=== PATIENT | female | born 1955 | race Caucasian/White ===

== ENCOUNTER 2023-01-03 10:42 | Emergency (ER) | payer OTHER, SELFPAY ==
[2023-01-03 10:46] VITALS: BP 186/90; PULSE 82; RESP 17; TEMP 36.7; O2SAT 97
--- NOTE | 2023-01-03 11:25 | ECG_ITS ---
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 Measurements Intervals [place] Rate: 66 P: 48 MN: 162 QRS: 48 QRSD: 77 T: 62 QT: 433 QTc: 454 Interpretive Statements SINUS RHYTHM No previous ECG available for comparison Electronically Signed On 01-03-2023 14:39:38 CDT by Darian Beatty M.D. [id number]
--- NOTE | 2023-01-03 11:25 | CTR_ITS ---
PROCEDURE INFORMATION: Exam: CT Head Without Contrast Exam date and time: 01/03/2023 11:46 AM Age: 67 years old Clinical indication: Stroke-like symptoms; Speech disturbance; Additional info: Right facial droop, slurred speech, x 24 hours TECHNIQUE: Imaging protocol: Computed tomography of the head without contrast. Radiation optimization: All CT scans at this facility use at least one of these dose optimization techniques: automated exposure control; mA and/or kV adjustment per patient size (includes targeted exams where dose is matched to clinical indication); or iterative reconstruction. Other technique: STROKE PROTOCOL was implemented. REPORTING DATA: Count of CT and Cardiac NM exams in prior 12 months: This patient has received 0 known CTs and 0 known cardiac nuclear medicine studies in the 12 months prior to the current study. COMPARISON: No relevant prior studies available. RADIATION DOSE METRICS: Total DLP (mGy-cm): 965.98 FINDINGS: Brain: There is focal cortical hypodensity and loss of greenwood-white differentiation in the anterior left frontal lobe visible involving a roughly 2 cm diameter region on axial series 4 image 25 through 30. There is asymmetric focal hypodensity measuring 11 mm diameter in the superior aspect of the left anterior limb of the internal capsule at the lateral margin of the caudate head visible on axial series 4, image 28. There is no acute intracranial hemorrhage. Cerebral ventricles: There is no significant ventricular dilation. The basal cisterns are unremarkable. Paranasal sinuses: The paranasal sinuses are clear. Mastoid air cells: The mastoid air cells are clear. Bones/joints: The calvarium is intact. Soft tissues: The visible extracranial soft tissues are unremarkable. CT/CT head wo con* [id number] IMPRESSION: 1. No acute intracranial hemorrhage. 2. Suspect small acute or subacute infarct in the anterior left frontal lobe. 3. Focal hypodensity associated in the left internal capsule is nonspecific and may represent subacute or chronic infarct or focal microvascular white matter disease. ASSESSMENT: ASPECTS (Lilia Stroke Program Early CT Score) is 10.
[2023-01-03 11:38] LABS: Basophils # 0.1 10^3/uL (0.0-0.1); Basophils % 1.3 %; Eosinophils # 0.1 10^3/uL (0.0-0.8); Eosinophils % 1.1 %; Hematocrit 42.5 % (36-47); Lymphocytes # 1.8 10^3/uL (0.8-4.8); Lymphocytes % 32.5 %; Mean Corpuscular HGB Conc 32.5 g/dL (30-55); Mean Corpuscular Volume 92.4 fl (85-98); Mean Platelet Volume 9.9 fL (7.4-10.4); Monocytes # 0.6 10^3/uL (0.2-0.9); Monocytes % 11.8 %; Neutrophils # 2.88 10^3/uL (1.8-7.7); Neutrophils % 52.9 %; Nucleated Red Blood Cells % 0 %; Platelet Count 236 10^3/cmm (157-399); Red Cell Distribution Width 13.5 % (12.1-15.1); White Blood Count 5.44 10^3/uL (3.29-11.43)
--- NOTE | 2023-01-03 11:44 | W.ED.NEUROSD ---
HPI - Neuro Symptoms/Deficit General: Chief Complaint: Neuro Symptoms/Deficit Stated Complaint: stroke like symptoms Time Seen by Provider: 01/03/23 11:15 History of Present Illness: Patient presents to the ER with chief complaint of strokelike symptoms. Patient has a right-sided facial droop and slurring of her speech. Patient says she woke up like this yesterday morning. Patient's last known normal was Wednesday night around 6 PM. She has never had anything like this before. Patient does smoke about half a pack per day. Review of Systems General: Reports: 10 or more systems reviewed and unremarkable except in HPI and below Physical Exam Const: COMMON NORMALS: no acute distress, average body habitus, patient oriented x3, no limitations, healthy appearing, alert and well nourished HENMT: COMMON NORMALS: normocephalic, atraumatic, hearing grossly normal bilaterally, external ears normal, Normal external nose present and moist oral mucous membranes HEAD & SCALP: normocephalic and atraumatic NOSE: Normal external nose present EXTERNAL EAR: Yes external ears normal Eye: COMMON NORMALS: Equal, round and reactive pupils present, EOMs intact bilaterally, conjunctivae normal and no scleral icterus CONJUNCTIVA: Yes conjunctivae normal PUPIL: Yes Equal, round and reactive pupils present Neck/C-Spine: COMMON NORMALS: full ROM, no lymphadenopathy, supple, no meningeal signs, no JVD and Thyroid normal THYROID: Thyroid normal Lymph: LYMPHATIC: no lymphadenopathy noted and no lymphedema noted Chest: COMMONS NORMALS: normal inspection of the chest and normal palpation of entire chest wall Resp: COMMON NORMALS: normal respiratory effort, No retractions, No use of accessory muscles and clear to auscultation bilaterally AUSCULTATION: clear to auscultation bilaterally Cardio: COMMON NORMALS: no JVD, regular rate, regular rhythm, S1 normal heart sound present, S2 normal heart sound present, No gallops present (Cardio), No clicks present (Cardio), No murmurs present (Cardio) and No rub (Cardio) RATE: regular rate RHYTHM: regular rhythm HEART SOUNDS: S1 normal heart sound present and S2 normal heart sound present GI: COMMON NORMALS: Normal to inspection, nondistended, normoactive bowel sounds present, Soft to palpation, non-tender, No hepatosplenomegaly present and no masses PALPATION: Yes Soft to palpation and Yes No hepatosplenomegaly present : COMMON NORMALS: Yes no CVA tenderness BLADDER/KIDNEY EXAM: Yes no CVA tenderness Back/Pelvis: COMMON NORMALS: no CVA tenderness Neuro: COMMON NORMALS: patient oriented x3, moves all extremities and no sensory deficits noted; negative for CN's II-XII intact bilaterally (Right-sided facial droop slurring of the speech) and negative for no focal motor deficits (Right-sided facial droop slurring of the speech) SENSORIUM/ORIENTATION: Yes alert MENINGEAL SIGNS: Yes no meningeal signs CRANIAL NERVES: No CN VII (facial) (Right-sided facial droop slurring of the speech) SPEECH: abnormal speech Course Vital Signs: Vital signs: Vital Signs Temperature 98.0 F 01/03/23 10:46 Pulse Rate 60 01/03/23 12:51 Respiratory Rate 17 01/03/23 10:46 Blood Pressure 165/85 01/03/23 12:51 Pulse Oximetry 97 01/03/23 12:51 Oxygen Delivery Me thod Room Air 01/03/23 10:46 MDM - Neuro Symptoms/Deficit Medical Decision Making Presents to the ER 24 hours after having left-sided stroke that affects her right-sided speech and face. Patient's not currently going to any doctor and is on any medicine. Lab work was obtained as well as CT which did show small acute to subacute infarct in the anterior left frontal lobe. This was explained to the patient that she should be released be on a full-strength aspirin. We will set the patient up for ultrasound of her carotid arteries and echocardiogram and have her follow-up with her primary care practitioner in [place] for further work-up. Differential Diagnosis Likely cerebrovascular accident; Unlikely carpal tunnel syndrome, convulsions, delirium, subarachnoid hemorrhage, peripheral neuropathy, multiple sclerosis or transient cerebral ischemia Medical Records I reviewed the patient's medical records. Lab Data I reviewed the patient's lab results. 01/03/23 11:33 01/03/23 11:[address] 01/03/23 11:25 IMPRESSION: 1. No acute intracranial hemorrhage. 2. Suspect small acute or subacute infarct in the anterior left frontal lobe. 3. Focal hypodensity associated in the left internal capsule is nonspecific and may represent subacute or chronic infarct or focal microvascular white matter disease. ASSESSMENT: ASPECTS (Lilia Stroke Program Early CT Score) is 10. ADDENDUM: 01/03/23 1241 THIS REPORT CONTAINS FINDINGS THAT MAY BE CRITICAL TO PATIENT CARE. The findings were verbally communicated via telephone conference with Thomas Marquis at 12:40 PM CDT on 01/03/2023. The findings were acknowledged and understood. Laboratory Results WBC 5.44 10^3/uL (3.29-11.43) 01/03/23 11:33 RBC 4.60 10^6/uL (3.85-5.65) 01/03/23 11:33 Hgb 13.80 g/dL (11.27-16.99) 01/03/23 11:33 Hct 42.5 % (36-47) 01/03/23 11:33 MCV 92.4 fl (85-98) 01/03/23 11:33 MCH 30.0 pg (27-33) 01/03/23 11:33 MCHC 32.5 g/dL (30-55) 01/03/23 11:33 RDW 13.5 % (12.1-15.1) 01/03/23 11:33 Plt Count 236 10^3/cmm (157-399) 01/03/23 11:33 MPV 9.9 fL (7.4-10.4) 01/03/23 11:33 Neut % (Auto) 52.9 % 01/03/23 11:33 Lymph % (Auto) 32.5 % 01/03/23 11:33 [place] % (Auto) 11.8 % 01/03/23 11:33 Eos % (Auto) 1.1 % 01/03/23 11:33 Baso % (Auto) 1.3 % 01/03/23 11:33 Neut # (Auto) 2.88 10^3/uL (1.8-7.7) 01/03/23 11:33 Lymph # (Auto) 1.8 10^3/uL (0.8-4.8) 01/03/23 11:33 [place] # (Auto) 0.6 10^3/uL (0.2-0.9) 01/03/23 11:33 Eos # (Auto) 0.1 10^3/uL (0.0-0.8) 01/03/23 11:33 Baso # (Auto) 0.1 10^3/uL (0.0-0.1) 01/03/23 11:33 Nucleated RBC % (auto) 0 % 01/03/23 11:33 Nucleated RBCs # 0.0 /100WBC 01/03/23 11:33 Sodium 139 mmol/L (136-145) 01/03/23 11:33 Potassium 4.1 mmol/L (3.5-5.1) 01/03/23 11:33 Chloride 104 mmol/L (98-107) 01/03/23 11:33 Carbon Dioxide 27 mmol/L (22-29) 01/03/23 11:33 Anion Gap 12.1 (5-19) 01/03/23 11:33 BUN 11 mg/dL (8-23) 01/03/23 11:33 Creatinine 0.9 mg/dL (0.5-0.9) 01/03/23 11:33 GFR Calculation 62.8 mL/min (90-130) L 01/03/23 11:33 Glucose 110 mg/dL (65-115) 01/03/23 11:33 Calculated Osmolality 288 mOsm/kg (285-295) 01/03/23 11:33 Calcium 9.4 mg/dL (8.5-10.5) 01/03/23 11:33 Magnesium 2.1 mg/dL (1.7-2.3) 01/03/23 11:33 Total Bilirubin 0.2 mg/dL (0.15-1.2) 01/03/23 11:33 AST 17 U/L (0-32) 01/03/23 11:33 ALT 8 U/L (0-33) 01/03/23 11:33 Alkaline Phosphatase 85 U/L (35-105) 01/03/23 11:33 C-Reactive Protein 3.0 mg/L (0.0-4.9) 01/03/23 11:33 Total Protein 7.0 g/dL (6.6-8.7) 01/03/23 11:33 Albumin 4.0 g/dL (3.5-5.2) 01/03/23 11:33 Globulin 3.0 g/dL (1.3-4.6) 01/03/23 11:33 TSH 1.50 uIU/mL (0.27-4.20) 01/03/23 11:33 Urine Color Yellow (Yellow) 01/03/23 11:40 Urine Appearance Clear (CLEAR) 01/03/23 11:40 Urine pH 5 (5-7) 01/03/23 11:40 Ur Specific Allen 1.025 (1.005-1.030) 01/03/23 11:40 Urine Protein Neg (Negative) 01/03/23 11:40 Urine Glucose (UA) Norm (Normal) 01/03/23 11:40 Urine Ketones Negative (Negative) 01/03/23 11:40 Urine Blood Neg (Negative) 01/03/23 11:40 Urine Nitrate Negative (Negative) 01/03/23 11:40 Urine Bilirubin Neg (Negative) 01/03/23 11:40 Urine Urobilinogen Norm mg/dL (Negative) 01/03/23 11:40 Ur Leukocyte Esterase Trace (Negative) H 01/03/23 11:40 Urine RBC 0-4 /hpf (0-2) H 01/03/23 11:40 Urine WBC 0-4 /hpf (0-5) H 01/03/23 11:40 Ur Squamous Epith Cells 5-10 /hpf (0-5) H 01/03/23 11:40 Amorphous Sediment Not Reportable 01/03/23 11:40 Urine Bacteria 1+ /hpf (NONE) H 01/03/23 11:40 Urine Mucus 1+ /hpf 01/03/23 11:40 Urine Opiates Screen Negative ng/mL (Negative) 01/03/23 11:40 Ur Barbiturates Screen Negative ng/mL (Negative) 01/03/23 11:40 Ur Phencyclidine Scrn Negative ng/mL (Negative) 01/03/23 11:40 Ur Amphetamines Screen Negative ng/mL (Negative) 01/03/23 11:40 U Benzodiazepines Scrn Negative ng/mL (Negative) 01/03/23 11:40 Urine Cocaine Screen Negative ng/mL (Negative) 01/03/23 11:40 U Marijuana (THC) Screen Negative ng/mL (Negative) 01/03/23 11:40 All radiology interpretation(s) finalized by discharge EKG Data EKG 1: I personally reviewed and interpreted this EKG as follows: EKG interpretation date: 01/03/23 EKG interpretation time: 11:31 Prior EKG tracings: not available for review Interpretation: EKG showed ventricular rate 66 bpm, MI interval 162, QRS duration 77, QTc of 446, sinus rhythm, no ST-T wave changes Discharge Plan Discharge Patient Disposition: Home Clinical Impression: Cerebrovascular accident Condition: Stable Prescriptions: No Action Vicks DayQuil (pseudoeph-ibup) 30-200 mg Tablet 1 tab PO Q6H PRN (Reason: Cough) ibuprofen 200 mg Capsule 600 - 800 mg PO Q6H PRN (Reason: Pain) Ocuvite Tablet 1 tab PO DAILY Women's 50 Plus Multivitamin 400 mcg-500 mg calcium-20 mcg Tablet 1 tab PO DAILY Discharge Orders: Discharge ED (Routine); Ordered 01/03/23 Ordered By: Thomas Marquis Patient Instructions: Stroke (DC) Activity Restrictions/Additional Instructions: Please call the [place] [facility] and set up an appointment as soon as possible. You have been referred to case management they should be calling you within the next couple days to schedule an appointment for echocardiogram on your heart and an ultrasound of your carotid arteries in your neck. Please take a full-strength aspirin every day. Return to the ER if your symptoms worsen. Coding Level of Care Code ED Supervisor Mails for Markell Mohan
[2023-01-03 12:00] LABS: Add Urine Culture? No; Add Urine Microscopic? YES; Bacteria Urine 1+ /hpf; Bilirubin Urine Neg (Negative); Blood Urine Neg (Negative); Glucose Urine UA Norm (Normal); Ketones Urine Negative (Negative); Leukocyte Esterase Urine Trace (Negative); Mucus Urine 1+ /hpf; Nitrate Urine Negative (Negative); Protein Urine Neg (Negative); RBC Urine 0-4 /hpf (0-2); Specific Gravity, Urine 1.025 (1.005-1.030); Urine Appearance Clear (CLEAR); Urine Color Yellow (Yellow); Urobilinogen Urine Norm (Negative); WBC Urine 0-4 /hpf (0-5); pH Urine 5 (5-7)
[2023-01-03 12:03] LABS: Amphetamines Screen Urine Negative (Negative); Barbiturates Screen Urine Negative (Negative); Benzodiazepines Screen Urine Negative (Negative); Cocaine Screen Urine Negative (Negative); Opiate Screen Urine Negative (Negative); PCP Screen Urine Negative (Negative); THC Screen Urine Negative (Negative)
[2023-01-03 12:08] LABS: Alanine Aminotransferase 8 U/L (0-33); Alkaline Phosphatase 85 U/L (35-105); Anion Gap 12.1 (5-19); Aspartate Amino Transferase 17 U/L (0-32); Blood Urea Nitrogen 11 mg/dL (8-23); Calcium 9.4 mg/dL (8.5-10.5); Carbon Dioxide 27 mmol/L (22-29); Chloride 104 mmol/L (98-107); Glomerular Filtration Rate 62.8 mL/min (90-130); Glucose 110 mg/dL (65-115); Magnesium 2.1 mg/dL (1.7-2.3); Osmolality Calculated 288 mOsm/kg (285-295); Potassium 4.1 mmol/L (3.5-5.1); Sodium 139 mmol/L (136-145); Total Bilirubin 0.2 mg/dL (0.15-1.2)
[2023-01-03 12:51] VITALS: BP 165/85; PULSE 60; O2SAT 97
[2023-01-03 14:05] VITALS: BP 147/80; PULSE 59; O2SAT 100
--- NOTE | 2023-01-04 09:12 | PC.SOCIAL ---
Echo/Carotid U/S Orders sent to centralized scheduling at this time. Spoke with patient about primary care; she states that she sees Asher Sosa in [place]. Asked registration to add provider to chart and results of testing be sent to Asher.
[2023-01-05 15:16] LABS: Chol HDL Ratio 5.06 mg/dL (0.0-4.40); Cholesterol 238 mg/dL (0-200); HDL Cholesterol 47 mg/dL (60-100); Triglycerides 835 mg/dL (0-150)
[2023-01-05 15:55] LABS: LDL Cholesterol Direct 147 mg/dL (0-100)
== END 2023-01-03 14:06 | disposition home or self-care (01) ==
PROVIDERS: Emergency Provider Emergency Medicine; PCP Registered Nurse
DX: I63.9 Cerebral infarction, unspecified (principal)
CPT/HCPCS: 36415; 70450; 80053; 80061; 80306; 81001; 83721; 83735; 84443; 85025; 86140; 93005; 99285

== ENCOUNTER → 2023-01-05 14:54 | Outpatient (BNVA) | payer OTHER, SELFPAY | PROVIDERS: PCP Registered Nurse; Visit Provider Registered Nurse | DX: I63.9 Cerebral infarction, unspecified (principal) | CPT/HCPCS: 80061 ==

== ENCOUNTER 2023-01-18 13:43 | Outpatient (CLI) | payer OTHER, SELFPAY ==
--- NOTE | 2023-01-18 13:55 | USCV_ITS ---
Caren Gilman Age: 67 Gender: F : 1955 Exam Date: 01/18/2023 14:05 Ordering Phys: Thomas Marquis DO Technologist: [place] [facility] [place]: [place] BP: 125 / 80 HR: 79 Rhythm: Sinus Technical Quality: Adequate MEASUREMENTS (Male / Female) Normal Values 2D ECHO LV Chamber Size 3.7 cm RV Chamber Size 3.7 cm LVOT Diameter 2.0 cm LV Ejection Fraction MOD 2C 59.4 % LV Ejection Fraction 2C AL 58.9 % LA Diameter 3.1 cm LA Width 4.0 cm LA Height 5.0 cm RA Width 3.0 cm RA Height 3.8 cm Aorta at Sinotubular Diameter 2.5 cm M-MODE Aortic Annulus Diameter 3.4 cm LA Ao Ratio MM 1.1 MV E Point Septal Separation 0.9 cm DOPPLER AV Peak Velocity 120.0 cm/s LVOT Peak Velocity 89.0 cm/s AV Area Cont Eq vti 2.2 cm squared AV Area Cont Eq pk 2.4 cm squared MV Area PHT 3.4 cm squared Mitral E to A Ratio 0.8 MV E' Velocity 44.0 cm/s Mitral E to MV E' Ratio 6.5 Mitral E to LV E' Lateral Ratio 5.5 Mitral E to LV E' Septal Ratio 8.0 TR Peak Velocity 88.3 cm/s TR Peak Gradient 3.1 mmHg TV Peak E Velocity 76.0 cm/s Right Atrial Pressure 3.0 mmHg Pulmonary Artery Systolic Pressu 6.1 mmHg PV Peak Velocity 89.0 cm/s FINDINGS Left Ventricle Left ventricle is normal in size. LV systolic function is normal with EF of 55-60% . No regional wall motion abnormalities are seen. Right Ventricle Normal in size and function Right Atrium Normal in size Left Atrium Normal in size Mitral Valve Structurally normal mitral valve. Trace mitral regurgitation Aortic Valve Structurally normal aortic valve. No significant stenosis or regurgitation. Tricuspid Valve Mild tricuspid regurgitation. Insufficient TR jet to calculate RVSP Pulmonic Valve Not well visualized Pericardium Normal Aorta Normal in size IVC Appears to be normal CONCLUSIONS LV systolic function is normal with EF of 55-60% Trace mitral regurgitation Mild tricuspid regurgitation No comparison studies are available. Darian Beatty MD (Electronically Signed) Final Date: 30 January 2023 11:05 S
--- NOTE | 2023-01-18 13:55 | USCV_ITS ---
Caren Gilman Age: 67 Gender: F : 1955 Exam Date: 01/18/2023 14:31 Ordering Phys: Thomas Marquis DO Technologist: CT Exam Location: [facility] – [place] Indication: Risk Factors: Previous Vascular Surgery: Right Brachial BP: / Left Brachial BP: / Right Left Velocity (cm/s) Spectral Plaque Velocity (cm/s) Spectral Plaque Syst/Diast Broadening Syst/Diast Broadening 85.20/ 20.20 Prox CCA 86.90 / 20.50 98.00/ 28.40 Mid CCA 86.50 / 22.40 73.30/ 23.80 Distal CCA 89.70 / 24.60 80.60/ 23.30 Prox ICA 82.40 / 19.70 70.60/ 23.00 Mid ICA 63.20 / 14.80 76.70/ 24.80 Distal ICA 53.50 / 16.10 83.80 ECA 107.80 0.82 ICA/CCA 0.92 Antegrade Vertebral Antegrade 33.80/ 10.50 cm/s 39.70/ 9.90 cm/s Bi Subclavian Bi 93.90 119.2 0 FINDINGS Comparison: none available. No significant elevation of systolic or diastolic velocities. Mild carotid atherosclerosis on the left. Antegrade vertebral flow but mild prevertebral steal flow in the left vertebral artery. CONCLUSIONS Bilateral ICA stenosis less than 50%. Mild carotid atherosclerosis. Left vertebral artery prevertebral steal waveform. Consider CTA aorta with attention to the left subclavian artery. Dr. Jolanta Martinez DO (Electronically Signed) Final Date: 19 January 2023 07:35 S
== END 2023-01-18 13:44 | disposition home or self-care (01) ==
PROVIDERS: PCP Registered Nurse; Visit Provider Emergency Medicine
DX: I63.9 Cerebral infarction, unspecified (principal); I25.10 Atherosclerotic heart disease of native coronary artery without angina pectoris
CPT/HCPCS: 93306; 93880

== ENCOUNTER 2023-02-09 15:34 | Outpatient (CLI) | payer OTHER, SELFPAY ==
--- NOTE | 2023-02-09 15:42 | CT_ITS ---
WS: [id number] CTA HEAD AND NECK TECHNIQUE: Contrast enhanced CTA of the head and neck with coronal and sagittal reformatted images an d maximum intensity projection (MIP) images. NASCET criteria utilized. CLINICAL INFORMATION: I63.9 - Cerebral infarction, unspecified COMPARISON: None. DLP: 1381.[address] scans at [facility] use at least one of these dose optimization techniques: automated e xposure control; mA and/or kV adjustment per patient size (includes targeted exams where dose is matc hed to clinical indication); or iterative reconstruction. FINDINGS: No evidence intracranial hemorrhage or mass effect. Ventricular system and basal cisterns a re patent. Chronic infarct in the LEFT centrum semiovale. Chronic lacunar infarcts in the RIGHT cauda te and RIGHT basal ganglia. Mild parenchymal volume loss. Mastoid air cells and paranasal sinuses are well aerated. Normal posterior nasopharynx. Irregular calcified atheromatous plaque LEFT subclavian artery origin with stenosis measuring approxi mately 40-45%. LEFT subclavian artery remains patent. Small but patent LEFT vertebral artery. RIGHT v ertebral artery is patent to the basilar junction. RIGHT: RIGHT common carotid artery is patent. Moderate atheromatous plaque RIGHT carotid bulb extendi ng into the ICA. RIGHT ICA is patent to the skull base. LEFT: LEFT common carotid artery is patent. Mild atheromatous plaque LEFT carotid bulb extending into the ICA. LEFT ICA is patent to the skull base. INTRACRANIAL CTA: Basilar artery is patent. Patent LEFT posterior communicating artery. Persistent RIGHT MANAGER PRODUCT. Nor mal vascularity to the MANAGER PRODUCT territory bilaterally. Patent anterior communicating artery. Normal vascularity to the EDER territory. Normal vascularity to the MCA territory bilaterally. No flow-limiting stenosis. IMPRESSION: 1. Less than 50% ICA stenosis bilaterally. Both ICAs are patent to the skull base. 2. RIGHT dominant vertebral artery. Smaller but patent LEFT vertebral artery. Vertebral arteries are patent to the basilar junction. 3. No flow-limiting intracranial stenosis. 4. LEFT proximal subclavian stenosis measuring approximately 40-45%. No flow-limiting stenosis. Sten osis extends over approximately 1.7 cm with peripheral atheromatous plaque.
[2023-02-09] MEDS: iohexol 350 mg/mL 500 mL Btl (per mL) IV (16:08)
== END 2023-02-09 15:35 | disposition home or self-care (01) ==
LOC: RAD 15:35
PROVIDERS: PCP Registered Nurse; Visit Provider Registered Nurse
DX: I63.9 Cerebral infarction, unspecified (principal); I65.23 Occlusion and stenosis of bilateral carotid arteries
CPT/HCPCS: 70496; 70498; Q9967

== ENCOUNTER → 2023-08-09 08:58 | Outpatient (BNVA) | payer OTHER, SELFPAY | PROVIDERS: PCP Registered Nurse; Visit Provider Registered Nurse | DX: I10 Essential (primary) hypertension (principal) | CPT/HCPCS: 80053; 80061; 83036; 85025 ==